=== PATIENT | male | born 1955 ===

== ENCOUNTER 2018-07-24 20:23 | Observation (INO) | payer MEDICARE ==
[2018-07-24 20:27] VITALS: BMI 33.3
[2018-07-24] MEDS ORDERED: Albuterol-Ipratrop 3 mg / 0.5 (3 ml) UD IH STA ×2 (20:43→22:42)
[2018-07-24 21:01] LABS: HEMOGLOBIN 14.2 g/dL (14.0-18.0); MEAN CELL VOLUME 88.7 fl (80.0-105.0); MEAN CORPUSCULAR HEMOGLOBIN 30.3 pg (25.0-35.0); MEAN CORPUSCULAR HGB CONC 34.2 g/dl (31.0-37.0); MEAN PLATELET VOLUME 9.4 fl (7.0-11.0); RBC 4.68 10^6/uL (3.5-6.1)
[2018-07-24 21:10] LABS: INR 1.06; PARTIAL THROMBOPLASTIN TIME 26.9 Seconds (26.9-38.3); PROTHROMBIN TIME 11.8 SECONDS (9.4-12.5)
[2018-07-24 21:23] LABS: ALB/GLOB RATIO 1.2 (1.1-1.8); ALBUMIN 3.9 g/dL (3.0-4.8); ALT/SGPT 30 U/L (7-56); AST/SGOT 29 U/L (17-59); B-TYPE NATRIURETIC PEPTIDE 101 pg/mL (0-450); BLOOD UREA NITROGEN 10 mg/dL (7-21); CALCIUM 8.7 mg/dL (8.4-10.5); GFR NON-AFRICAN AMERICAN > 60
[2018-07-24 21:27] LABS: TROPONIN I < 0.01 ng/mL
--- NOTE | 2018-07-24 21:56 | ED PDOC ---
Arrival/HPI - General Chief Complaint: Shortness Of Breath Time Seen by Provider: 07/24/18 20:29 Historian: Patient - History of Present Illness Narrative History of Present Illness (Text): 07/24/18 21:55 Jose Crawford is a 62 year old male, with past medical history of former tobacco abuse, who present to the emergency department complaining of shortness of breath and wheezing for the past few days, worse tonight. Patient notes he has experienced similar symptoms in the past and was diagnosed with bronchitis. Patient denies any fever, chills, chest pain, nausea, vomiting, diarrhea, urinary symptoms, back pain, neck pain, headache, dizziness, or any other complaints. Time/Duration: < week Symptom Onset: Gradual Symptom Course: Unchanged Activities at Onset: Light Context: Home Past Medical History - Provider Review Nursing Documentation Reviewed: Yes - Infectious Disease Hx of Infectious Diseases: None - Pulmonary Hx Bronchitis: Yes - Psychiatric Hx Substance Use: No - Surgical History Other/Comment: sinus surgery - Anesthesia Hx Anesthesia: Yes Hx Anesthesia Reactions: No Hx Malignant Hyperthermia: No Family/Social History - Physician Review Nursing Documentation Reviewed: Yes Family/Social History: Unknown Family HX Smoking Status: Never Smoked Hx Alcohol Use: No Hx Substance Use: No Allergies/Home Meds Allergies/Adverse Reactions: Allergies Penicillins Allergy (Verified 07/24/18 20:27) RASH Review of Systems - Physician Review All systems were reviewed & negative as marked: Yes - Review of Systems Constitutional: absent: Fatigue, Weight Change, Fevers Eyes: absent: Vision Changes Respiratory: SOB, Wheezing Cardiovascular: absent: Chest Pain Musculoskeletal: absent: Neck Pain Skin: absent: Rash, Skin Lesions, Laceration Neurological: absent: Headache, Dizziness, Focal Weakness, Speech Changes, Facial Droop Psychiatric: absent: Anxiety, Depression Physical Exam Vital Signs Reviewed: Yes Vital Signs Temp Pulse Resp BP Pulse Ox 07/24/18 20:39 28 H 100 07/24/18 20:31 98.6 F 91 H 18 137/64 98 Temperature: Afebrile Blood Pressure: Normal Pulse: Regular Respiratory Rate: Normal Appearance: Positive for: Well-Appearing Pain Distress: None Mental Status: Positive for: Alert and Oriented X 3 - Systems Exam Head: Present: Atraumatic, Normocephalic Pupils: Present: PERRL. No: Non-Reactive Extroacular Muscles: Present: EOMI Conjunctiva: Present: Normal Mouth: Present: Moist Mucous Membranes Neck: Present: Normal Range of Motion Respiratory/Chest: Present: Wheezes, Decreased Breath Sounds Cardiovascular: Present: Regular Rate and Rhythm. No: Murmurs, Irregular Rhythm Abdomen: Present: Normal Bowel Sounds. No: Tenderness, Distention, Peritoneal Signs Back: Present: Normal Inspection Upper Extremity: Present: Normal Inspection. No: Cyanosis, Edema Lower Extremity: Present: Normal Inspection. No: Edema Neurological: Present: GCS=15, CN II-XII Intact, Speech Normal Skin: Present: Warm, Dry, Normal Color. No: Rashes Psychiatric: Present: Alert, Oriented x 3, Normal Insight, Normal Concentration Medical Decision Making ED Course and Treatment: 07/24/18 22:09 Impression: 62 year old male complaining of shortness of breath and wheezing. Plan: -- EKG -- Labs -- Labs -- Chest X-ray -- Albuterol -- SOLU-Medrol -- Reassess and disposition Prior Visits: Notes and results from previous visits were reviewed. Progress Notes: Reviewed EKG shows NSR at [address]/T changes. No acute ST elevation. No acute ST depressions. 07/24/18/22:15 Reviewed radiology, Chest X-ray shows no acute processes. 07/24/18 23:[address] Barnes, who is aware and agrees with plan. Accepts pt in to his service. Requests Dr. Munoz on consult. - Lab Interpretations Lab Results: PT 11.8 SECONDS (9.4-12.5) 07/24/18 20:48 INR 1.06 07/24/18 20:48 APTT 26.9 Seconds (26.9-38.3) 07/24/18 20:48 Troponin I < 0.01 ng/mL 07/24/18 20:48 NT-Pro-B Natriuret Pep 101 pg/mL (0-450) 07/24/18 20:48 Total Bilirubin 0.3 mg/dL (0.2-1.3) 07/24/18 20:48 AST 29 U/L (17-59) 07/24/18 20:48 ALT 30 U/L (7-56) 07/24/18 20:48 Alkaline Phosphatase 84 U/L (38-126) 07/24/18 20:48 Total Protein 7.3 g/dL (5.8-8.3) 07/24/18 20:48 Albumin 3.9 g/dL (3.0-4.8) 07/24/18 20:48 Globulin 3.4 gm/dL 07/24/18 20:48 Albumin/Globulin Ratio 1.2 (1.1-1.8) 07/24/18 20:48 I have reviewed the lab results: Yes - RAD Interpretation Radiology Orders: 07/24/18 20:43 CHEST PORTABLE [RAD] [employer] Concierge: ED Physician - EKG Interpretation Interpreted by ED Physician: Yes Type: 12 lead EKG - Medication Orders Current Medication Orders: Discontinued Medications Albuterol/Ipratropium (Duoneb 3 Mg/0.5 Mg (3 Ml) Ud) 3 ml IH ONCE STA Stop: 07/24/18 20:44 Last Admin: 07/24/18 20:55 Dose: 3 ml Methylprednisolone (Solu-Medrol) 125 mg IVP ONCE ONE Stop: 07/24/18 20:44 Last Admin: 07/24/18 20:55 Dose: 125 mg IVP Administration Document 07/24/18 20:55 GMD (Rec: 07/24/18 20:55 GMD [facility] [place]-[id number]) Charges for Administration # of IVP Administrations 1 - Scribe Statement The provider has reviewed the documentation as recorded by the Scribmonse Perry training under Danita Yee Documented by [Kirsten Perry] acting as a scribe for Jose Molina MD. Disposition/Present on Arrival - Present on Arrival Any Indicators Present on Arrival: No History of DVT/PE: No History of Uncontrolled Diabetes: No Urinary Catheter: No History of Decub. Ulcer: No History Surgical Site Infection Following: None - Disposition Have Diagnosis and Disposition been Completed?: Yes Diagnosis: COPD exacerbation Disposition: HOSPITALIZED Disposition Time: 00:13 Patient Plan: Discharge Condition: GOOD Referrals: FAMILY PROVIDER,NO [Primary Care Provider] - Follow up with primary Forms: [employer] (Italian)
[2018-07-25] MEDS: Albuterol-Ipratrop 3 mg / 0.5 (3 ml) UD IH PRN ×2 (08:14→20:43)
--- NOTE | 2018-07-25 08:25 | RAD ---
Date of service: 07/24/2018 HISTORY: sob COMPARISON: No prior. TECHNIQUE: 1 view obtained. FINDINGS: LUNGS: No active pulmonary disease. PLEURA: No significant pleural effusion identified, no pneumothorax apparent. CARDIOVASCULAR: No aortic atherosclerotic calcification present. Normal cardiac size. No pulmonary vascular congestion. OSSEOUS STRUCTURES: No significant abnormalities. VISUALIZED UPPER ABDOMEN: Normal. OTHER FINDINGS: None. IMPRESSION: No active disease.
[2018-07-25] MEDS ORDERED: MethylPREDNISolone 40 mg Vial IVP SCH (09:15)
[2018-07-25] MEDS: MethylPREDNISolone 40 mg Vial IVP SCH ×2 (14:00→21:35)
--- NOTE | 2018-07-25 17:22 | CON ---
DATE OF CONSULTATION: 07/25/2018 PULMONARY CONSULTATION REFERRING PHYSICIAN: Dr. Barnes. REASON FOR CONSULTATION: Cough, shortness of breath. HISTORY OF PRESENT ILLNESS: This is a 62-year-old gentleman, former smoker, recently moved [id number], staying with daughter, started having cough and shortness of breath, discolored sputum production. No nausea, vomiting, or diarrhea. Does not know he is snoring, daytime sleepy and tired. No leg pain or leg swelling. PAST MEDICAL HISTORY Chronic lung disease. No history of cardiopulmonary disease reported. FAMILY HISTORY: No significant cardiopulmonary disease reported. SOCIAL HISTORY: Stopped smoking many years ago. Denying the alcohol use. ALLERGIES: TO PENICILLIN. REVIEW OF SYSTEMS: No headache, not much rhinitis. Has a cough, shortness of breath, discolored sputum production. No nausea, no vomiting and no diarrhea. No leg pain or leg swelling. Admitted to be sleepy and tired during the daytime. PHYSICAL EXAMINATION: GENERAL: Lying in the bed, in no acute distress. VITAL SIGNS: Temperature 98, heart rate 100, respiratory rate is 18, blood pressure 151/85, pulse of 94% on 3 liters of nasal cannula. HEENT: Moist mucous membrane. Crowded airway. Mallampati score is 4. NECK: Supple. No JVD. LUNGS: Prolonged expiratory phase with a few wheezing. HEART: S1 and S2. ABDOMEN: Soft, nontender, no organomegaly. EXTREMITIES: No edema. NEUROLOGICALLY: Awake, alert, and follows simple commands. LABORATORY DATA: Shows hemoglobin 14.2, hematocrit 41.5, WBC 8, platelet is 237. INR 1.06. PTT 27. Sodium 144, potassium 3.6, chloride 109, bicarbonate 25, BUN 10, creatinine 0.8, glucose 107, calcium 8.7, AST 29, ALT 30, alk phos is 84. Troponin less than 0.01. Albumin is 3.9. Chest x-ray done in ER shows no active pulmonary disease. IMPRESSION AND PLAN: Probably exacerbation of chronic obstructive lung disease, ex-smoker, may have a sleep apnea syndrome. We will continue with Solu-Medrol, add doxycycline 100 mg daily, continue DuoNeb, gastric prophylaxis, deep venous thrombosis prophylaxis. We will send D-dimers, venous Doppler. We will recommend PFT, attended sleep study upon discharge as outpatient. Thank you and we will follow with you. Shlomo Munoz MD [facility] # [id number]
--- NOTE | 2018-07-25 19:00 | CARD ---
APPROVED REPORT Date of service: 07/24/2018 EKG Measurement Heart [id number] <Conclusion> Normal sinus rhythm Normal ECG
--- NOTE | 2018-07-25 20:11 | HP ---
DATE OF EXAM: 07/25/2018 HISTORY OF PRESENT ILLNESS: He is a 62-year-old white man who came to the emergency room with acutely shortness of breath with wheezing that was not getting better. PAST MEDICAL HISTORY: He has a past medical history of smoking cigarettes. He has had bronchitis in the past, sinus surgery. FAMILY HISTORY: Unknown family history. SOCIAL HISTORY: He did smoke in the past. No alcohol. No drugs. ALLERGIES: PENICILLIN. MEDICATIONS: No medications. REVIEW OF SYSTEMS: He is not fatigued. No weight changes. No vision changes. No hearing changes. He has shortness of breath and he has wheezing. No chest pain, no palpitations, no neck pain, no skin lesions or rashes. No headaches or dizziness or focal weakness. No anxiety or depression. PHYSICAL EXAMINATION VITAL SIGNS: He has 98.6 temperature, 91 pulse, 18 respiratory rate, 137/64 blood pressure, and 98% O2 sat. GENERAL: He is well appearing, alert and oriented x3. HEENT: Head is atraumatic, normocephalic. Extraocular muscles are intact. Pupils equally reactive to light and accommodation. Throat is moist. NECK: Supple. HEART: Regular rate. LUNGS: Decreased breath sounds, occasional wheeze, but clear to auscultation. Mild congestion, changes with cough and clears. EXTREMITIES: No edema. NEUROLOGIC: GCS is 15. Cranial nerves II through XII grossly intact. Speech is normal. Alert and oriented x3. SKIN: Warm and dry. LABORATORY DATA: He had some tests done. White count is 18, hemoglobin is 14.2, hematocrit 41.5, platelets are 237. He has 1.06 INR. A 144 sodium, potassium is 3.6, BUN 10, creatinine 0.8, GFR is greater than 60, sugar is 107, calcium is 8.7, total bili is 0.3. AST is 29, ALT is 30, alk phos 84. Lactate dehydrogenase is 532, total creatine kinase is 93. Troponin I is less than 0.01. BNP is 101, total protein is 7.3, albumin is 3.9. Chest x-ray was clear. ASSESSMENT AND PLAN: He will be on IV Solu-Medrol, DuoNebs and oxygen. He is on observation level of care. He will have a pulmonary consult. Hopefully, he will improve quickly and we will get him out. We will watch him closely overnight, check his labs tomorrow, decrease his Solu-Medrol. He is here with a chronic obstructive pulmonary disease exacerbation. Darnell Barnes DO
[2018-07-25] MEDS: Arformoterol 15 mcg/2 ml Inh Sol IH SCH (20:43)
[2018-07-25] MEDS: Budesonide 0.5 mg/2 ml Inhal Susp UD IH SCH (20:43)
[2018-07-26] MEDS ORDERED: Pantoprazole 40 mg EC Tab PO SCH (06:00)
[2018-07-26] MEDS: Budesonide 0.5 mg/2 ml Inhal Susp UD IH SCH (07:30)
[2018-07-26] MEDS: Arformoterol 15 mcg/2 ml Inh Sol IH SCH (07:30)
[2018-07-26 07:37] LABS: HEMOGLOBIN 13.5 g/dL (14.0-18.0); MEAN CORPUSCULAR HGB CONC 33.3 g/dl (31.0-37.0); MEAN PLATELET VOLUME 9.7 fl (7.0-11.0); RBC 4.5 10^6/uL (3.5-6.1); RED CELL DISTRIBUTION WIDTH 13.3 % (11.5-14.5); WHITE BLOOD COUNT 15.5 10^3/uL (4.5-11.0)
[2018-07-26 07:59] LABS: ALB/GLOB RATIO 1.3 (1.1-1.8); ALBUMIN 3.9 g/dL (3.0-4.8); ALT/SGPT 29 U/L (7-56); AST/SGOT 28 U/L (17-59); BLOOD UREA NITROGEN 18 mg/dL (7-21); CALCIUM 9.6 mg/dL (8.4-10.5); GFR NON-AFRICAN AMERICAN > 60
[2018-07-26] MEDS: MethylPREDNISolone 40 mg Vial IVP SCH ×2 (08:27→15:37)
[2018-07-26] MEDS ORDERED: Enoxaparin 40 mg Syringe SC SCH (10:00)
[2018-07-26 14:12] VITALS: BP 126/78; PULSE 92; RESP 20; TEMP 98.3; O2SAT 96
[2018-07-26] MEDS ORDERED: Pneumococcal 23-Valent Vaccine IM ONE (14:44)
--- NOTE | 2018-07-26 21:22 | PN ---
DATE: 07/26/2018 REFERRING PHYSICIAN: Darnell Barnes DO. SUBJECTIVE: He is sitting at the side of the bed having lunch. Still has a cough, sputum production. No nausea, vomiting, diarrhea, leg pain or leg swelling. PHYSICAL EXAMINATION: GENERAL: No acute distress. VITAL SIGNS: Temperature is 98, heart rate is 92, respiratory rate is 24, blood pressure 126/78, pulse oximetry 96% on room air. HEENT: Moist mucous membrane. Crowded airway. Mallampati score is 4. NECK: Supple. No JVD. LUNGS: Have a prolonged expiratory phase with no rhonchi. HEART: S1 and S2. ABDOMEN: Soft, nontender. No organomegaly. EXTREMITIES: No edema. NEUROLOGIC: Awake, alert, follows simple command. MEDICATIONS: He is on Brovana inhaled twice a day, doxycycline 100 mg twice a day, Lovenox 40 mg daily, Protonix 40 mg daily, Solu-Medrol 30 mg every 8 hours, Pulmicort inhaled twice a day. LABORATORY DATA: Hemoglobin 13.5, hematocrit 40.5, WBC 15.5, platelet is 265. INR 1.06, PTT 27. D-dimer quantitative less than 200. Sodium 141, potassium 4.6, chloride 112, bicarbonate is 17, BUN 18, creatinine 0.8, glucose 229, calcium 9.6, AST 28, ALT 29, alkaline phosphatase is 75, albumin is 3.9. Venous Doppler extremity done, report is pending. IMPRESSION AND PLAN: Chronic obstructive lung disease, ex-smoker, sleep apnea syndrome. Pulmonary point of view, doing okay. Continue intravenous and inhaled bronchodilator. Continue antibiotics. Gastric prophylaxis. Deep venous thrombosis prophylaxis. Fall precaution. We will need outpatient pulmonary function test and a 10-day sleep study. Gastroesophageal reflux disease precautions. Thank you and we will follow with you. Shlomo Munoz MD
--- NOTE | 2018-07-27 01:35 | DS ---
HISTORY OF PRESENT ILLNESS: He is sitting up in bed. He is breathing better. No wheeze. No congestion. No cough. He feels like he is back to his old self. He was seen by the lung doctor who ordered a venous Doppler and also working him up for sleep apnea. He is comfortable in bed. I am going to discharge him on medications. I discussed that with him and he will be on his Brovana, doxycycline for 5 days, Protonix for a short time, Pulmicort and prednisone 30 mg for three days and 20 mg for three days and 10 mg for two days and stop. I will see him in the office. PHYSICAL EXAMINATION VITAL SIGNS: A 97.4 temperature, 89 pulse, 156/80 blood pressure, 18 respiratory rate, and 94% O2 sat on room air. HEENT: Head is atraumatic and normocephalic. HEART: Regular rate. LUNGS: Completely clear bilaterally. No wheezes. No rhonchi. No rales with a complete change from the other day. ABDOMEN: Soft, obese, and nontender. EXTREMITIES: No edema. No calf pain. LABORATORY DATA: He has a 15.5 white count from the steroid, 13.5 hemoglobin, 40.5 hematocrit with 265 platelets. D-dimer was less than 200. A 141 sodium, potassium 4.6, BUN 18, creatinine 0.8, GFR is greater than is 60, sugar is 229, calcium is 9.6, total bili is 0.3, AST is 28, ALT is 29, and alkaline phosphatase 75, troponin I is less then 0.01, total protein is 6.9. IMPRESSION AND PLAN: My plan is to discharge him, hopefully he will do very well. He did very, very well. He had acute exacerbation of chronic obstructive pulmonary disease and will be on steroids. I am discharging him. He will follow up with me in the office. Darnell Barnes DO
--- NOTE | 2018-07-27 09:36 | US ---
HISTORY: Leg pain and swelling. Evaluate for DVT PHYSICIAN(S): Floyd Gary MD. TECHNIQUE: Duplex sonography and color-flow Doppler with graded compression were used to evaluate the deep venous systems of both lower extremities. FINDINGS: The visualized deep venous systems of both lower extremities are sonographically normal and compressible. Normal wave forms and augmentation are seen. There is no sonographic evidence for deep venous thrombosis in the visualized segments of both lower extremities. IMPRESSION: No sonographic evidence for deep venous thrombosis in the visualized segments of both lower extremities.
== END 2018-07-26 18:12 | disposition home or self-care (01) ==
LOC: ED 20:23 → MERGE 07-25 00:14 → ERH 07-25 00:14 → 5RSO 07-25 01:47
PROVIDERS: ADMIT Family Medicine; ATTEND Family Medicine
DX: J44.1 Chronic obstructive pulmonary disease with (acute) exacerbation (principal); G47.30 Sleep apnea, unspecified; Z87.891 Personal history of nicotine dependence; Z23 Encounter for immunization
CPT/HCPCS: 36415; 71045; 80053; 82550; 83615; 83880; 84484; 85027; 85378; 85610; 85730; 90732; 93005; 93970; 94640; 94760; 96374; 99285; G0009; G0378; J1650; J2920; J2930